=== PATIENT | female | born 1960 | race Caucasian/White ===

== ENCOUNTER 2018-07-23 14:56 | Outpatient (CLI) | payer BC ==
--- NOTE | 2018-07-23 16:09 | BD ---
DEXA BONE DENSITY STUDY: HISTORY: Postmenopausal: FINDINGS: Lumbar Spine: BMD (g/cm2) L1 0.795 T-Score: -1.8 L2 0.828 T-Score: -1.8 L3 0.802 T-Score: -2.6 L4 0.842 T-Score: -2.0 L1-L4 0.817 T-Score: -2.1 Femoral Neck: 0.709 T-Score: -1.3 Total Femur: 0.778 T-Score: -1.3 Impression: 1. Osteopenia of the left femoral neck and lumbar spine. 2. Ten-year fracture risk major osteoporotic fracture 7% and hip fracture 0.5%. These fracture prob abilities were calculated for an untreated patient. POS: [facility]
== END 2018-07-23 14:57 | disposition home or self-care (01) ==
LOC: BICMAMMO 14:56
PROVIDERS: ATTEND Family Medicine
DX: M85.852 Other specified disorders of bone density and structure, left thigh (principal); M81.0 Age-related osteoporosis without current pathological fracture
CPT/HCPCS: 77080